=== PATIENT | male | born 2000 | race Caucasian/White ===

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

== ENCOUNTER 2021-12-20 08:46 | Emergency (ER) | payer OTHER ==
[2021-12-20 08:57] VITALS: BP 120/76; PULSE 85; TEMP 98.2; BMI 24.3
[2021-12-20] MEDS ORDERED: IBUPROFEN 600 MG TABLET (FP) PO ONE ×2 (09:32→09:44)
== END 2021-12-20 10:01 | disposition home or self-care (01) ==
LOC: JER 08:46 → JERFT 08:46
DX: M25.661 Stiffness of right knee, not elsewhere classified (principal)
CPT/HCPCS: 73562-TC-RT-FY; 99283-25